=== PATIENT | male | born 1995 | race Asian ===

== ENCOUNTER → 2023-04-19 | Outpatient (CLI) | payer OTHER ==
[~2023-04-19] MED LIST: IOHEXOL 350 MG/ML 100 ML VIAL ONE; SODIUM CHLORIDE 0.9% 100 ML ONE
== END | disposition home or self-care (01) ==
LOC: RADMN 08:45
PROVIDERS: ATTEND Neurological Surgery
DX: I67.6 Nonpyogenic thrombosis of intracranial venous system (principal)
CPT/HCPCS: 74177; Q9967; J7050